=== PATIENT | female | born 1990 | race Caucasian/White ===

== ENCOUNTER 2016-04-15 15:09 | Emergency (ER) | payer OTHER ==
[2016-04-15 15:31] VITALS: BP 114/58
--- NOTE | 2016-04-15 15:33 | UC ---
Complaint Female HPI - HPI Summary HPI Summary: 25 yo female with PMH of asthma (well controlled) who presents with c/o 1 week of vaginal itching with white discharge and 1 day of nasal congestion, nonproductive cough and fatigue. She reports her daughter has been sick for a few days and was just dx with a viral illness. She denies fever or chills. No body aches. No sore throat. Denies N/V/D or abdominal pain. No dysuria. Currently is menstruating. Denies painful intercourse,. - History Of Current Complaint Chief Complaint: UCRespiratory Stated Complaint: PERSONAL Time Seen by Provider: 04/15/16 15:28 Hx Obtained From: Patient Hx Last Menstrual Period: 4 days ?: No Onset/Duration: Gradual Onset Severity Initially: Mild Severity Currently: Mild Pain Intensity: 4 Pain Scale Used: 0-10 Numeric - vaginal itching Aggravating Factor(s): Nothing Alleviating Factor(s): Position Associated Signs And Symptoms: Positive: Negative, Vaginal Bleeding/Discharge - currently has menses. reports white vaginal discharge - Risk Factors Ectopic Risk Factor: Negative Ovarian Torsion Risk Factor: Negative - Allergies/Home Medications Allergies/Adverse Reactions: Allergies Allergy/AdvReac Type Severity Reaction Status Date / Time Sertraline [From Zoloft] Allergy Unknown Verified 04/15/16 15:31 Reaction Details Sulfa Antibiotics AdvReac Intermediate THRUSH Verified 04/15/16 15:31 PMH/Surg Hx/FS Hx/Imm Hx Previously Healthy: Yes Respiratory History Of: Reports: Asthma - has not used an inhaler in years - Surgical History Surgical History: None - Family History Known Family History: Positive: None, Hypertension, Diabetes, Respiratory Disease - Social History Lives: With Family Alcohol Use: Occasionally Substance Use Type: None Smoking Status (MU): Former Smoker Type: Cigarettes Amount Used/How Often: 1 CIGS PER DAY prior to 1 week ago Have You Smoked in the Last Year: Yes When Did the Patient Quit Smoking/Using Tobacco: JUNE 2015 Household Exposure Type: Cigarettes - Immunization History Hx Tetanus, Diphtheria Vaccination: Yes Vaccination Up to Date: Yes Review of Systems Constitutional: Other - vaginal itching, 1 day cough, nasal congestion Skin: Negative Eyes: Negative ENT: Negative Respiratory: Cough Cardiovascular: Negative Gastrointestinal: Negative Genitourinary: Other - vaginal itching and white discharge Motor: Negative Neurovascular: Negative Musculoskeletal: Negative Neurological: Headache Psychological: Negative All Other Systems Reviewed And Are Negative: Yes Physical Exam Triage Information Reviewed: Yes Appearance: Well-Appearing, No Pain Distress, Well-Nourished Vital Signs: Initial Vital Signs Temp 99 F 04/15/16 15:24 Pulse 92 04/15/16 15:24 Resp 18 04/15/16 15:24 BP 114/58 04/15/16 15:24 Pulse Ox 99 04/15/16 15:24 Vital Signs Reviewed: Yes Eyes: Positive: Conjunctiva Clear ENT: Positive: Pharynx normal, Nasal congestion, TMs normal Neck: Positive: Supple, Nontender, No Lymphadenopathy Respiratory: Positive: Chest non-tender, Lungs clear, Normal breath sounds, No respiratory distress, No accessory muscle use Cardiovascular: Positive: RRR, No Murmur, Pulses Normal, Brisk Capillary Refill Abdomen Description: Positive: Nontender, Soft. Negative: CVA Tenderness (R), CVA Tenderness (L), Distended, Guarding, Peritoneal Signs Bowel Sounds: Positive: Absent Musculoskeletal: Positive: Strength Intact, ROM Intact, No Edema Neurological: Positive: Alert Psychological Exam: Normal Diagnostics - Laboratory Diagnostic Studies Completed/Ordered: negative urinalysis Complaint Female Dx - Differential Dx/Diagnosis Differential Diagnosis/HQI/PQRI: Urinary Tract Infection Provider Diagnoses: 1. Isaura vulvovaginitis. 2. Viral Syndrome Discharge - Discharge Plan Condition: Stable Disposition: HOME Prescriptions: Fluconazole [Diflucan 150 MG (NF)] 150 mg PO Q72HR #2 tab Montelukast Sodium TAB* [Singulair 10 MG TAB*] 10 mg PO BEDTIME PRN #5 tab PRN Reason: Allergy Symptoms Patient Education Materials: Vulvovaginal Candidiasis (ED), Viral Syndrome (ED) Referrals: IVETH Rai [Primary Care Provider] - (follow up 3-5 days if no improvement in symptoms) Additional Instructions: If you have any concerning or worsening symptoms see your primary or return. Increase your yogurt intake with probiotics (make sure it has low sugar) or you can take a daily probiotioc
== END 2016-04-15 16:10 | disposition home or self-care (01) ==
LOC: UCCORT 15:09
DX: B37.3 Candidiasis of vulva and vagina (principal); N89.8 Other specified noninflammatory disorders of vagina; B34.9 Viral infection, unspecified; Z88.2 Allergy status to sulfonamides; Z88.8 Allergy status to other drugs, medicaments and biological substances; Z87.891 Personal history of nicotine dependence
CPT/HCPCS: 81003; 84702; 99212; G0463

== ENCOUNTER 2016-11-20 08:21 | Emergency (ER) | payer OTHER ==
[2016-11-20 08:32] VITALS: BP 113/72
--- NOTE | 2016-11-20 09:36 | UC ---
Ear Complaint HPI - HPI Summary HPI Summary: 17 year old female with ear pain and urinary complaints. "I think I have a yeast infection and ear infection..." c/o left ear pain and jaw pain worsening over 3 days. Also c/o vaginal itching without discharge, states similar to when had a yeast infection before. PRIOR TOOK DIFLUCAN AND THE INFECTION RESOLVED. NO PAP SMEAR OR LINE APPLIANCE ASSEMBLER EVAL IN OVER 2 YEARS. Denies new sexual partners or concern for STI. [ End ] - History of Current Complaint Chief Complaint: UCEar Stated Complaint: LEFT EAR,URINARY COMPLAINT Time Seen by Provider: 11/20/16 09:26 Hx Obtained From: Patient Hx Last Menstrual Period: 11/09/16 Onset/Duration: Gradual Onset Severity Initially: Mild Severity Currently: Mild Associated Signs/Symptoms: Negative: Discharge, Hearing Loss - Allergies/Home Medications Allergies/Adverse Reactions: Allergies Allergy/AdvReac Type Severity Reaction Status Date / Time Sertraline [From Zoloft] Allergy Unknown Verified 11/20/16 08:32 Reaction Details Sulfa Antibiotics AdvReac Intermediate THRUSH Verified 11/20/16 08:32 PMH/Surg Hx/FS Hx/Imm Hx Previously Healthy: Yes - Surgical History Surgical History: None - Family History Known Family History: Positive: None, Hypertension, Diabetes, Respiratory Disease - Social History Occupation: Employed Full-time Lives: With Family Alcohol Use: None Substance Use Type: None Smoking Status (MU): Former Smoker Type: Cigarettes Amount Used/How Often: 1 CIGS PER DAY prior to 1 week ago Have You Smoked in the Last Year: Yes When Did the Patient Quit Smoking/Using Tobacco: JUNE 2015 Household Exposure Type: Cigarettes Cessation Counseling: Patient Advised to Stop - Immunization History Most Recent Influenza Vaccination: no Hx Tetanus, Diphtheria Vaccination: Yes Vaccination Up to Date: Yes Review of Systems ENT: Ear Ache Genitourinary: Vaginal/Penile Itching Is Patient Immunocompromised?: No All Other Systems Reviewed And Are Negative: Yes Physical Exam Triage Information Reviewed: Yes Appearance: Well-Appearing, No Pain Distress, Well-Nourished Vital Signs: Initial Vital Signs Temp 97.5 F 11/20/16 08:28 Pulse 80 11/20/16 08:28 Resp 14 11/20/16 08:28 BP 113/72 11/20/16 08:28 Pulse Ox 100 11/20/16 08:28 Vital Signs Reviewed: Yes Eye Exam: Normal ENT Exam: Normal Dental Exam: Normal Neck exam: Normal Neck: Positive: 1 Respiratory Exam: Normal Cardiovascular Exam: Normal Abdominal Exam: Normal Musculoskeletal Exam: Normal Neurological Exam: Normal Psychological Exam: Normal Skin Exam: Normal Ear Complaint Course/Dx - Course Course Of Treatment: She declined pelvic exam. She is certain its a yeast infection. We will offer treatmnent at this time and she will f/u with LINE APPLIANCE ASSEMBLER as I advised. She is aware, she has AOM and will start claritin daily. RTO here if any concerns. No pelvic pain, discharge, new sexual partners, fever. - Differential Dx/Diagnosis Differential Diagnosis/HQI/PQRI: Otitis Externa, Otitis Media, Perforated TM, TMJ Syndrome Provider Diagnoses: Vaginal candidiasis / Serous otitis media left ear Discharge - Discharge Plan Condition: Good Disposition: HOME Prescriptions: Fluconazole [Diflucan 150 MG (NF)] 150 mg PO ONCE #1 tab Patient Education Materials: Vulvovaginal Candidiasis (ED) Referrals: IVETH Rai [Primary Care Provider] - 4 Days Additional Instructions: PLEASE CALL AND SET UP FOLLOW UP WITH YOUR LINE APPLIANCE ASSEMBLER FOR YOUR ANNUAL PAP SMEAR
== END 2016-11-20 09:41 | disposition home or self-care (01) ==
LOC: UCCORT 08:21
DX: H65.92 Unspecified nonsuppurative otitis media, left ear (principal); B37.3 Candidiasis of vulva and vagina; Z32.02 Encounter for pregnancy test, result negative; Z88.2 Allergy status to sulfonamides; Z88.8 Allergy status to other drugs, medicaments and biological substances; Z87.891 Personal history of nicotine dependence
CPT/HCPCS: 81003; 84702; 99212; G0463

== ENCOUNTER 2017-01-19 18:00 | Emergency (ER) | payer OTHER ==
[2017-01-19 18:20] VITALS: BP 132/83
[2017-01-19] MEDS ORDERED: Ibuprofen TAB* 600 MG PO ONE (18:56)
--- NOTE | 2017-01-19 19:03 | UC ---
HPI Febrile Illness - HPI Summary HPI Summary: Pt presents with 3 days of body aches, chills, tactile temp. Pt with cough, no productive. + nasal congestion, pnd and ear fullness. no rash. No cp, sob. No abd pain. No n/v/d. Pt has taken over the counter APAP and motrin with mild improvement of sx. Last APAP 4pm. + sick contacts Pt's medications reviewed this visit - History of Current Complaint Chief Complaint: UCGeneralIllness Time Seen by Provider: 01/19/17 18:23 Hx Obtained From: Patient Hx Last Menstrual Period: on BCP Onset/Duration: Started Days Ago Timing: Constant Alleviating Factors: OTC Medicine Associated Signs and Symptoms: Arthralgia, Chills, Cough - Allergy/Home Medications Allergies/Adverse Reactions: Allergies Allergy/AdvReac Type Severity Reaction Status Date / Time Sertraline [From Zoloft] Allergy Unknown Verified 01/19/17 18:20 Reaction Details Sulfa Antibiotics AdvReac Intermediate THRUSH Verified 01/19/17 18:20 Home Medications: Home Medications Control Pill 1 tab DAILY 01/19/17 [History Confirmed 01/19/17] PMH/Surg Hx/FS Hx/Imm Hx Previously Healthy: Yes - Surgical History Surgical History: None - Family History Known Family History: Positive: None, Hypertension, Diabetes, Respiratory Disease - Social History Occupation: Employed Part-time Lives: With Family Alcohol Use: Occasionally Substance Use Type: None Smoking Status (MU): Current Some Day Smoker Type: Cigarettes Amount Used/How Often: 1 CIGS PER DAY prior to 1 week ago Have You Smoked in the Last Year: Yes When Did the Patient Quit Smoking/Using Tobacco: JUNE 2015 Household Exposure Type: Cigarettes - Immunization History Most Recent Influenza Vaccination: no Hx Tetanus, Diphtheria Vaccination: Yes Vaccination Up to Date: Yes Review of Systems Constitutional: Fever, Chills Skin: Negative ENT: Sinus Congestion Respiratory: Cough Cardiovascular: Negative Gastrointestinal: Negative Genitourinary: Negative Motor: Negative Neurovascular: Negative Musculoskeletal: Arthralgia Neurological: Negative Is Patient Immunocompromised?: Yes All Other Systems Reviewed And Are Negative: Yes Physical Exam Triage Information Reviewed: Yes Appearance: Well-Nourished, Other: - tired appearing Vital Signs: Initial Vital Signs Temp 98.3 F 01/19/17 18:14 Resp 17 01/19/17 18:14 BP 132/83 12/11/17 18:14 Pulse Ox 99 01/19/17 18:14 Eye Exam: Normal Eyes: Positive: Conjunctiva Clear ENT Exam: Normal ENT: Positive: Pharyngeal erythema, Nasal congestion. Negative: TMs normal, Sinus tenderness Dental Exam: Normal Neck exam: Normal Neck: Positive: Supple, Nontender, No Lymphadenopathy Respiratory Exam: Normal Respiratory: Positive: Chest non-tender, Lungs clear, Normal breath sounds, No respiratory distress, No accessory muscle use, Other: - occasional cough Cardiovascular Exam: Normal Cardiovascular: Positive: RRR, No Murmur, Pulses Normal, Brisk Capillary Refill Abdominal Exam: Normal Abdomen Description: Positive: Nontender, No Organomegaly, Soft Bowel Sounds: Positive: Present Musculoskeletal Exam: Normal Musculoskeletal: Positive: Strength Intact Neurological Exam: Normal Neurological: Positive: Alert Psychological Exam: Normal Skin Exam: Normal Course/Dx - Course Course Of Treatment: pt with cough, mylagia, tactile fevers x 3 days. pt with motrin/apap with temp improvement. Non concerning, non focal exam. influenza neg. symptomatic tx. tessalon pearls. flonase. hydrate. motrin/apap. secretion precaution. pt declined work note. return precautions discussed - Diagnoses Clinic Provider Diagnoses: viral syndrome. cough. mylalgia Discharge - Discharge Plan Condition: Stable Disposition: HOME Prescriptions: Benzonatate CAP* [Tessalon 100 MG CAP*] 100 mg PO TID #15 cap Fluticasone NASAL SPRAY 50MCG* [Flonase NASAL SPRAY 50MCG*] 2 spray BOTH NARES DAILY #1 btl Patient Education Materials: Viral Syndrome (ED) Referrals: No Primary Care Phys,NOPCP [Primary Care Provider] - Additional Instructions: - Stay well hydrated. Drink plenty of non-alcoholic, non-caffinated beverages - Okay to alternate ibuprofen (advil, Motrin)600 and Tylenol 2 tables every 3 hours for pain. Take with food - Okay to take take cough medication as prescribed - use nasal spray as instructed - These infections are spread by secretions - do NOT share eating or drinking utensils - clean items you share with other people such as cell phones, computer mouse, TV remote, computer tablets, etc. Once you start to feel better , change your pillowcase and your toothbrush - get plenty of restful sleep. - contact your doctor to schedule a follow-up appointment. contact your doctor or return with questions or concerns
== END 2017-01-19 19:06 | disposition home or self-care (01) ==
LOC: UCCORT 18:00
DX: B34.9 Viral infection, unspecified (principal); R05 Cough; M79.1 Myalgia; Z88.2 Allergy status to sulfonamides; Z88.8 Allergy status to other drugs, medicaments and biological substances; Z87.891 Personal history of nicotine dependence
CPT/HCPCS: 87502; 99212; A9270-GY; G0463

== ENCOUNTER 2018-04-05 08:20 | Emergency (ER) | payer OTHER ==
[2018-04-05 08:37] VITALS: BP 112/69
--- NOTE | 2018-04-05 08:42 | UC ---
Ear Complaint HPI - HPI Summary HPI Summary: 27 yo female with left otalgia x 1 day decreased hearing Has been scratching her ear canal - History of Current Complaint Chief Complaint: UCEar Stated Complaint: LT EAR COMPLAINT Time Seen by Provider: 04/05/18 08:35 Hx Obtained From: Patient Hx Last Menstrual Period: MAY 2017 Onset/Duration: Gradual Onset Severity Initially: Moderate Severity Currently: Moderate Pain Intensity: 7 Pain Scale Used: 0-10 Numeric Associated Signs/Symptoms: Positive: Hearing Loss - Allergies/Home Medications Allergies/Adverse Reactions: Allergies Allergy/AdvReac Type Severity Reaction Status Date / Time sertraline Allergy Unknown Unknown Verified 04/05/18 08:30 Reaction Details Sulfa (Sulfonamide Allergy Unknown thrush Verified 04/05/18 08:30 Antibiotics) Home Medications: Home Medications Citalopram TAB* [CeleXA TAB*] 40 mg PO DAILY 04/05/18 [History Confirmed ] Pnv No.95/Ferrous Fum/Folic AC [ Tablet] 1 each PO DAILY 04/05/18 [ History Confirmed 04/05/18] PMH/Surg Hx/FS Hx/Imm Hx Previously Healthy: Yes - Surgical History Surgical History: None - Family History Known Family History: Positive: Hypertension, Diabetes, Respiratory Disease - Social History Alcohol Use: None Substance Use Type: None Smoking Status (MU): Former Smoker Type: Cigarettes Amount Used/How Often: 1 CIGS PER DAY prior to 1 week ago Have You Smoked in the Last Year: Yes When Did the Patient Quit Smoking/Using Tobacco: JUNE 2015 Household Exposure Type: Cigarettes - Immunization History Most Recent Influenza Vaccination: no Hx Tetanus, Diphtheria Vaccination: Yes Vaccination Up to Date: Yes Review of Systems All Other Systems Reviewed And Are Negative: Yes Constitutional: Positive: Negative Skin: Positive: Negative Eyes: Positive: Negative ENT: Positive: Ear Ache Respiratory: Positive: Negative Cardiovascular: Positive: Negative Gastrointestinal: Positive: Negative Genitourinary: Positive: Negative Motor: Positive: Negative Neurovascular: Positive: Negative Musculoskeletal: Positive: Negative Neurological: Positive: Negative Psychological: Positive: Negative Physical Exam Triage Information Reviewed: Yes Appearance: Well-Appearing, No Pain Distress, Well-Nourished Vital Signs: Initial Vital Signs Temp 98 F 04/05/18 08:32 Pulse 78 04/05/18 08:32 Resp 18 04/05/18 08:32 BP 112/69 04/05/18 08:32 Pulse Ox 100 04/05/18 08:32 Vital Signs Reviewed: Yes Eyes: Positive: Conjunctiva Clear ENT: Positive: TMs normal, Uvula midline, Other - left EAC swollen, left tragal tenderness. Negative: Hearing grossly normal - decreased left, Pharyngeal erythema, Nasal congestion, Nasal drainage, Tonsillar swelling, Tonsillar exudate, Trismus, Muffled voice, Hoarse voice, Dental tenderness, Sinus tenderness Neck: Positive: Supple, Nontender, No Lymphadenopathy Respiratory: Positive: Lungs clear, Normal breath sounds, No respiratory distress Cardiovascular: Positive: RRR, No Murmur Musculoskeletal: Positive: Other: - normal gait Neurological: Positive: Alert Skin Exam: Normal Ear Complaint Course/Dx - Differential Dx/Diagnosis Provider Diagnosis: Left otitis externa Discharge - Sign-Out/Discharge Documenting (check all that apply): Patient Departure All imaging exams completed and their final reports reviewed: No Studies - Discharge Plan Condition: Stable Disposition: HOME Prescriptions: Neomyc/Polym/HC 1% OTIC SUSP* [Cortisporin Otic Susp 1%*] 4 drop LEFT EAR QID 7 Days #1 btl Patient Education Materials: Otitis Externa (ED) Referrals: IVETH Rai [Primary Care Provider] - 4 Days Additional Instructions: tylenol recheck in 4-5 days if not better...sooner if symptoms worsen - Billing Disposition and Condition Condition: STABLE Disposition: Home
== END 2018-04-05 08:57 | disposition home or self-care (01) ==
LOC: UCCORT 08:20
DX: H60.92 Unspecified otitis externa, left ear (principal); Z88.8 Allergy status to other drugs, medicaments and biological substances; Z88.2 Allergy status to sulfonamides; Z87.891 Personal history of nicotine dependence
CPT/HCPCS: 99212; G0463

== ENCOUNTER 2018-09-16 16:27 | Emergency (ER) | payer OTHER ==
[2018-09-16 16:42] VITALS: BP 118/86
--- NOTE | 2018-09-16 17:02 | UC ---
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 Started a couple of days ago. " -no dysuria + chavira thin d/c that has fish liek odor. -gets BV freuqently treated w/ flagyl. feels the same - History Of Current Complaint Chief Complaint: UCGU Stated Complaint: URINARY COMPLAINT Time Seen by Provider: 09/16/18 16:34 Hx Last Menstrual Period: a month ago Pain Intensity: 0 - Allergies/Home Medications Allergies/Adverse Reactions: Allergies Allergy/AdvReac Type Severity Reaction Status Date / Time sertraline Allergy Unknown Unknown Verified 04/05/18 08:30 Reaction Details Sulfa (Sulfonamide Allergy Unknown thrush Verified 04/05/18 08:30 Antibiotics) PMH/Surg Hx/FS Hx/Imm Hx Previously Healthy: Yes - Surgical History Surgical History: None - Family History Known Family History: Positive: Hypertension, Diabetes, Respiratory Disease - Social History Alcohol Use: Occasionally Substance Use Type: None Smoking Status (MU): Former Smoker Type: Cigarettes Amount Used/How Often: 1 CIGS PER DAY prior to 1 week ago Have You Smoked in the Last Year: Yes When Did the Patient Quit Smoking/Using Tobacco: JUNE 2015 Household Exposure Type: Cigarettes - Immunization History Most Recent Influenza Vaccination: no Hx Tetanus, Diphtheria Vaccination: Yes Vaccination Up to Date: Yes Review of Systems All Other Systems Reviewed And Are Negative: Yes Constitutional: Positive: Negative Skin: Positive: Negative. Negative: Rash Eyes: Positive: Negative Respiratory: Positive: Negative Cardiovascular: Positive: Negative Gastrointestinal: Positive: Negative Genitourinary: Positive: Vaginal/Penile Discharge. Negative: Dysuria Motor: Positive: Negative Neurovascular: Positive: Negative Musculoskeletal: Positive: Negative Neurological: Positive: Negative Psychological: Positive: Negative Is Patient Immunocompromised?: No Physical Exam Triage Information Reviewed: Yes Appearance: Well-Appearing, No Pain Distress, Well-Nourished Vital Signs: Initial Vital Signs Temp 98.7 F 09/16/18 16:38 Pulse 88 09/16/18 16:38 Resp 18 09/16/18 16:38 BP 118/86 09/16/18 16:38 Pulse Ox 99 09/16/18 16:38 Vital Signs Reviewed: Yes Eye Exam: Normal Respiratory Exam: Normal Cardiovascular Exam: Normal Abdominal Exam: Normal Musculoskeletal Exam: Normal Neurological Exam: Normal Psychological Exam: Normal Skin Exam: Normal Complaint Female Dx - Course Course Of Treatment: -clinical history and sx are c/w BV -gets this frequently and resolved w/ flagly. treat w/ 500mgs BID x 7 d -very agreeable w/ plan UA - + 1 protein. nitrites neg. wbcs neg. no blood - Differential Dx/Diagnosis Differential Diagnosis/HQI/PQRI: Urinary Tract Infection, Other - BV Provider Diagnosis: Bacterial vaginosis Discharge - Sign-Out/Discharge Documenting (check all that apply): Patient Departure All imaging exams completed and their final reports reviewed: No Studies - Discharge Plan Condition: Stable Disposition: HOME Prescriptions: metroNIDAZOLE [Flagyl 500 MG TAB] 500 mg PO BID #14 tab Patient Education Materials: Bacterial Vaginosis (ED) Referrals: Jael Austin NP [Primary Care Provider] - Additional Instructions: Follow up with your ELECTROMYOGRAPHIC TECHNICIAN or PCP if symptoms increase or persist. Do not drink alcohol while you are on the flagyl. - Billing Disposition and Condition Condition: STABLE Disposition: Home
== END 2018-09-16 17:18 | disposition home or self-care (01) ==
LOC: UCCORT 16:27
DX: N76.0 Acute vaginitis (principal); B96.89 Other specified bacterial agents as the cause of diseases classified elsewhere; Z88.2 Allergy status to sulfonamides; Z87.891 Personal history of nicotine dependence
CPT/HCPCS: 81003; 99212; G0463

== ENCOUNTER 2019-02-14 08:09 | Emergency (ER) | payer OTHER ==
--- OUTSIDE RECORDS SUMMARY | 2019-02-14 08:18 | XMS REPORT | Continuity of Care Document ---
:1990 External Reference #:[id number] Author Name REYES Monique Address [address] [place] [address] Problems Active Problems Provider Date Asthma Celia Yuan PA-C Onset: 11/23/2018 Mild depression Celia Yuan PA-C Onset: 11/23/2018 Social History Type Date Description Comments Sex Unknown Tobacco Use Start: Unknown Patient has never smoked Allergies, Adverse Reactions, Alerts Active Allergies Reaction Severity Comments Date Zoloft 11/23/2018 Sulfa 11/23/2018 Medications Active Medications SIG Qnty Indications Ordering Provider Date Nitrofurantoin Monohyd bid x 5 days 10caps R30.0 Jose 12/13/2018 Johana Rondon MD 100mg Capsules Hydroxyzine HCL take one tab by 20tabs B30.9 Jose 11/23/2018 25mg mouth every 8 MD Alcon Tablets hours as needed for itchy eyes Singulair daily Unknown 10mg Tablets History Medications Amoxicillin twice a day x 20tabs H66.92 Jose Rondon 11/26/2018 - 875mg 10 days 12/13/2018 Tablets Immunizations Description No Information Available Vital Signs Date Vital Result Comment 12/13/2018 1:07pm Heart Rate 98 /min BP Systolic 110 mmHg BP Diastolic 98 mmHg Respiratory Rate 16 /min Body Temperature 98.1 F O2 % BldC Oximetry 98 % room air 11/26/2018 1:23pm Heart Rate 93 /min BP Systolic 104 mmHg BP Diastolic 70 mmHg Respiratory Rate 16 /min Body Temperature 97.9 F O2 % BldC Oximetry 98 % room air Results Description No Information Available Procedures Description No Information Available Medical Devices Description No Information Available Encounters Type Date Location Provider Dx Diagnosis Office Visit 12/13/2018 [facility] Hilaria Lovelace R30.0 Dysuria 12:59p Walk-in at [facility] Office Visit 11/26/2018 [facility] Hilaria Lovelace, H66.92 Otitis media, 1:16p Walk-in at [place] unspecified, left ear [place] Office Visit 11/23/2018 [facility] Celia Olsen H10.9 Unspecified 10:19a Walk-in at [facility] conjunctivitis [facility] B30.9 Viral conjunctivitis, unspecified Assessments Date Code Description Provider 12/13/2018 R30.0 Dysuria REYES Monique 11/26/2018 H66.92 Otitis media, unspecified, left ear REYES Monique 11/23/2018 H10.9 Unspecified conjunctivitis Celia Yuan PA-C 11/23/2018 B30.9 Viral conjunctivitis, unspecified Celia Yuan PA-C Plan of Treatment 12/13/2018 - Hilaria Lovelace PAR30.0 DysuriaNew Medication:Nitrofurantoin Monohyd Macro 100 mg - bid x 5 daysComments:FOLLOW UP WITH PRIMARY CARE IN 5-7 DAYS FOR A RECHECK OR SOONER FOR ANY CHANGES/WORSENING. Functional Status Description No Information Available Mental Status Description No Information Available Referrals Refer to Reason for Referral Status Appt Date Created
--- OUTSIDE RECORDS SUMMARY | 2019-02-14 08:18 | XMS REPORT | Continuity of Care Document ---
:1990 External Reference #:[id number] Author Name REYES Monique Address [address] [place] [address] Problems Active Problems Provider Date Asthma Celia [...] Location Provider Dx Diagnosis Office Visit 12/13/2018 [facility] Hilaria Lovelace R30.0 Dysuria 12:59p Walk-in at [facility] Office Visit 11/26/2018 [facility] Hilaria Lovelace, H66.92 Otitis media, 1:16p Walk-in at [place] unspecified, left ear [facility] Office Visit 11/23/2018 [facility] Celia Olsen H10.9 Unspecified 10:19a Walk-in at [facility] conjunctivitis [facility] B30.9 Viral conjunctivitis, unspecified Assessments Date Code [...]
[2019-02-14 08:25] VITALS: BP 120/76
--- NOTE | 2019-02-14 08:36 | UC ---
Dizzy HPI HPI Summary: 28-year-old female who awakened this morning with some head congestion and mild dizziness when she turned over in bed. She denies any dizziness when she is up standing and walking around and she can only replicate it when she is laying down. She describes it as the room moving mildly but denies any nausea or vomiting and no nystagmus. - History Of Current Complaint Chief Complaint: UCDizziness Stated Complaint: DIZZY Time Seen by Provider: 02/14/19 08:27 Hx Obtained From: Patient Hx Last Menstrual Period: 02/10/2019 ?: No Onset/Duration: Sudden Onset - Patient experienced the dizziness when she turned over in bed this morning., Lasting Minutes, Resolved Timing: Frequency Of Episodes - Patient had only one episode when she turned over in bed this morning. Severity Initially: Mild Severity Currently: Mild Pain Intensity: 0 Character: Room Spinning - Patient stated it felt like the room was spinning mildly when she turned over in bed. Aggravating Factor(s): Change In Head Position Alleviating Factor(s): Other - Patient states it mostly happens when she was laying in bed and turned her head. Associated Signs And Symptoms: Positive: Negative - Allergies/Home Medications Allergies/Adverse Reactions: Allergies Allergy/AdvReac Type Severity Reaction Status Date / Time sertraline Allergy Unknown Unknown Verified 02/14/19 08:18 Reaction Details Sulfa (Sulfonamide Allergy Unknown thrush Verified 02/14/19 08:18 Antibiotics) Home Medications: Home Medications Montelukast Sodium TAB* [Singulair 10 MG TAB*] 10 mg PO DAILY 02/14/19 [History Confirmed 02/14/19] Venlafaxine ER (NF) [Effexor ER (NF)] 225 mg PO DAILY 02/14/19 [History Confirmed 02/14/19] PMH/Surg Hx/FS Hx/Imm Hx Previously Healthy: Yes Respiratory History: Asthma Psychological History: Depression - Surgical History Surgical History: None - Family History Known Family History: Positive: None, Hypertension, Diabetes, Respiratory Disease - Social History Alcohol Use: Occasionally Substance Use Type: None Smoking Status (MU): Former Smoker Type: Cigarettes Amount Used/How Often: 2 months ago Have You Smoked in the Last Year: Yes When Did the Patient Quit Smoking/Using Tobacco: JUNE 2015 Household Exposure Type: Cigarettes - Immunization History Most Recent Influenza Vaccination: no Hx Tetanus, Diphtheria Vaccination: Yes Vaccination Up to Date: Yes Review of Systems All Other Systems Reviewed And Are Negative: Yes ENT: Positive: Nasal Discharge, Sinus Congestion - Patient states she had some head congestion this morning. Is Patient Immunocompromised?: No Physical Exam Triage Information Reviewed: Yes Appearance: Well-Appearing, No Pain Distress, Well-Nourished Vital Signs: Initial Vital Signs Temp 97.6 F 02/14/19 08:19 Pulse 90 02/14/19 08:19 Resp 15 02/14/19 08:19 BP 120/76 02/14/19 08:19 Pulse Ox 97 02/14/19 08:19 Vital Signs Reviewed: Yes Eyes: Positive: Conjunctiva Clear - PERRLA, EOMI. Negative eye drift ENT: Positive: Pharynx normal, Nasal drainage - Clear nasal coryza, TMs normal, Uvula midline Neck: Positive: Supple, Nontender, No Lymphadenopathy Respiratory: Positive: Lungs clear, Normal breath sounds, No respiratory distress, No accessory muscle use Cardiovascular: Positive: RRR, No Murmur, Pulses Normal, Brisk Capillary Refill Musculoskeletal: Positive: Strength Intact, ROM Intact, Other: - Good arm and leg strength against resistance, full range of motion. Neurological: Positive: Alert, Muscle Tone Normal - Cranial nerves 2 through 12 are intact, good finger to nose bilaterally, normal dystidiokinesis, good heel to romero bilaterally, good heel-to-toe forward and backward bilaterally, knee reflexes +2, good arm and leg strength against resistance, alert and oriented 3. Psychological Exam: Normal Skin Exam: Normal Dizzy Course/Dx - Course Course Of Treatment: The patient only experiences the dizziness when she is laying down but I did give her a prescription for meclizine if she wants to use it or she experiences dizziness throughout the day. I believe this is more viral related to her head congestion and very mild she does not experience any nystagmus nor nausea or vomiting. She's follow-up with her primary care provider if she has continued symptoms and 2 or 3 days or she has any worsening symptoms. - Differential Dx/Diagnosis Provider Diagnosis: URI (upper respiratory infection) Discharge ED - Sign-Out/Discharge Documenting (check all that apply): Patient Departure All imaging exams completed and their final reports reviewed: No Studies - Discharge Plan Condition: Good Disposition: HOME Prescriptions: Meclizine TAB* [Antivert 12.5 TAB*] 25 mg PO TID PRN #10 tab PRN Reason: dizzy Patient Education Materials: Vertigo (DC) Referrals: Jael Austin NP [Primary Care Provider] - Additional Instructions: Avoid movements that cause dizziness. Take whatever [id number] decongestant of choice. Follow-up with your primary care provider if no improvement in 2 or 3 days. - Billing Disposition and Condition Condition: GOOD Disposition: Home
== END 2019-02-14 08:44 | disposition home or self-care (01) ==
LOC: UCCORT 08:09
DX: J06.9 Acute upper respiratory infection, unspecified (principal); J45.909 Unspecified asthma, uncomplicated; F32.9 Major depressive disorder, single episode, unspecified; Z88.8 Allergy status to other drugs, medicaments and biological substances; Z88.2 Allergy status to sulfonamides; Z79.899 Other long term (current) drug therapy
CPT/HCPCS: 99212; G0463

== ENCOUNTER 2019-04-19 18:12 | Emergency (ER) | payer OTHER | END 2019-04-19 18:49 | disposition left against medical advice (07) | LOC: UCCORT 18:12 | DX: Z53.21 Procedure and treatment not carried out due to patient leaving prior to being seen by health care provider (principal) ==